=== PATIENT | female | born 1960 | race Caucasian/White ===

== ENCOUNTER → 2023-06-24 10:49 | Outpatient (CLI) | payer MEDICARE, OTHER, SELFPAY ==
[2023-06-24 12:09] LABS: Add Manual Diff / Slide Review NO; Basophils Absolute Auto 0 /uL (0-100); Eosinophils Absolute Auto 100 /uL (0-450); Eosinophils Percent Auto 2.3 % (2-4); Hematocrit 36.9 % (36-46); Hemoglobin 12.7 g/dL (12.0-16.0); Lymphocytes Absolute Auto 1300 /uL (1100-4500); Mean Corpuscular HGB Conc 34.4 % (30-36); Mean Corpuscular Hemoglobin 31.9 PG (26-34); Mean Corpuscular Volume 92.7 fL (80-100); Monocytes Absolute Auto 400 /uL (0-900); Monocytes Percent Auto 8.5 % (3-14); Neutrophils Absolute Auto 2900 /uL (1500-7000); Neutrophils Percent Auto 60.2 % (50-75); Platelet Count 270 X10^3/uL (150-400); Red Blood Cell Count 3.98 X10^6/uL (4.0-5.2); Red Cell Distribution Width 13.8 % (11.6-14.8); White Blood Cell Count 4.8 X10^3/uL (4.5-11.0)
[2023-06-24 12:19] LABS: Hemoglobin A1C% w Est Avg Glu 5.3 % (4.0-6.0)
[2023-06-24 12:34] LABS: Albumin 4.7 g/dL (3.5-5.0); BUN Creatinine Ratio 24.6 (6-22); Blood Urea Nitrogen 15 mg/dL (7-17); Calcium 9.9 mg/dL (8.4-10.2); Carbon Dioxide 28 mmol/L (22-32); Chloride 97 mmol/L (98-107); Estimated Glomerular Filt Rate > 60 mL/min (>60); Glucose 104 mg/dL (80-110); HEMOLYSIS < 15 (0-50); Potassium 4.3 mmol/L (3.4-5.1); Sodium 133 mmol/L (137-145)
[2023-06-24 12:43] LABS: Prealbumin 27.4 mg/dL (17.6-36.0)
== END ==
PROVIDERS: PCP Family Medicine; Referring Provider Orthopaedic Surgery Adult Reconstructive Orthopaedic Surgery; Visit Provider Orthopaedic Surgery Adult Reconstructive Orthopaedic Surgery
DX: Z01.818 Encounter for other preprocedural examination (principal); E55.9 Vitamin D deficiency, unspecified; R73.9 Hyperglycemia, unspecified; R77.0 Abnormality of albumin; Z01.812 Encounter for preprocedural laboratory examination
CPT/HCPCS: 36415; 80048; 82040; 82306; 83036; 84134; 85025; 93005

== ENCOUNTER 2023-08-06 06:11 | Day surgery (SDC) | payer MEDICARE, OTHER, SELFPAY ==
[2023-08-05 08:50] VITALS: BMI 20.5
[2023-08-06] VITALS (15 sets, daily range): BP systolic 87–131; BP diastolic 43–75; PULSE 70–105; RESP 12–18; TEMP 36.2–37.3; O2SAT 94–100; BMI 20.5
--- NOTE | 2023-08-06 | DI.RAD.S_ITS ---
PROCEDURE: XR HIP W PEL IF DONE RT 4V INDICATIONS: Intra OP right hip TECHNIQUE: 5 intraoperative images of the right hip. COMPARISON: [facility] [place], [place], XR PELVIS 1 OR 2 VIEWS, 06/24/2023, 10:33. FINDINGS: 5 intraoperative images of the right hip arthroplasty. The arthroplasty projects in the expected location. IMPRESSION: Intraoperative guidance provided. Dictated by: Oswaldo Toure M.D. on 08/06/2023 at 10:11 Approved by: Oswaldo Toure M.D. on 08/06/2023 at 10:12
--- NOTE | 2023-08-06 | DI.RAD.S_ITS ---
PROCEDURE: XR HIP W PEL IF DONE RT 2V INDICATIONS: Post OP total right hip TECHNIQUE: 2 view(s) of the hip acquired. COMPARISON: [facility], FIDELINA, XR HIP W PEL IF DONE RT 4V, 08/06/2023, 9:39. FINDINGS: Bones: Patient is status post right hip arthroplasty, with hardware components in expected positions. The hip joint appears congruent. The visualized bony structures appear intact. Soft tissues: Overlying postoperative changes are noted. No suspicious soft tissue densities. IMPRESSION: Expected post-operative appearance of a hip arthroplasty. Dictated by: Heidi North M.D. on 08/06/2023 at 11:29 Approved by: Heidi North M.D. on 08/06/2023 at 11:29
[2023-08-06 07:04] LABS: Add Manual Diff / Slide Review NO; Basophils Absolute Auto 0 /uL (0-100); Basophils Percent Auto 0.6 % (0-2); Eosinophils Absolute Auto 100 /uL (0-450); Eosinophils Percent Auto 2.5 % (2-4); Hematocrit 36.5 % (36-46); Hemoglobin 12.5 g/dL (12.0-16.0); Lymphocytes Absolute Auto 1700 /uL (1100-4500); Lymphocytes Percent Auto 34.6 % (25-40); Mean Corpuscular HGB Conc 34.4 % (30-36); Mean Corpuscular Hemoglobin 31.8 PG (26-34); Mean Corpuscular Volume 92.6 fL (80-100); Monocytes Absolute Auto 400 /uL (0-900); Monocytes Percent Auto 8.7 % (3-14); Neutrophils Absolute Auto 2600 /uL (1500-7000); Neutrophils Percent Auto 53.6 % (50-75); Platelet Count 256 X10^3/uL (150-400); Red Blood Cell Count 3.94 X10^6/uL (4.0-5.2); Red Cell Distribution Width 13.7 % (11.6-14.8); White Blood Cell Count 4.9 X10^3/uL (4.5-11.0)
[2023-08-06] MEDS: LACTATED RINGERS 1,000 ML 42 ML IV ×2 (07:07→12:30)
[2023-08-06 07:14] LABS: Blood Urea Nitrogen 17 mg/dL (7-17); Calcium 9.5 mg/dL (8.4-10.2); Carbon Dioxide 28 mmol/L (22-32); Chloride 104 mmol/L (98-107); Estimated Glomerular Filt Rate > 60 mL/min (>60); Glucose 109 mg/dL (80-110); HEMOLYSIS < 15 (0-50); Potassium 3.7 mmol/L (3.4-5.1); Sodium 137 mmol/L (137-145)
--- NOTE | 2023-08-06 07:47 | PM.PREOP ---
Pre-operative Note Interval Note History & Physical reviewed/Exam performed by Physician: Yes Changes to H&P: No
[2023-08-06] MEDS: CEFAZOLIN 2 GM/100 ML PREMIX 100 ML IV ×2 (08:20→16:52)
[2023-08-06] MEDS: TRANEXAMIC ACID 1,000 MG in SODIUM CHLORIDE 0.9% 100 ML 200 MG IV ×2 (08:34→10:15)
--- NOTE | 2023-08-06 08:43 | SUR.OPER ---
Supine on padded [place] table with bilateral legs secured in padded positioning boots and suspended in positioning spars, operative leg in traction per surgeon. Head on one pillow. Both Arms secured on padded armboards <90 degrees abduction. Padded perineal post in place per surgeon.
[2023-08-06] MEDS: ROPIVACAINE/EPI/CLONIDINE/KET 50 ML SYRINGE INJ (08:58)
[2023-08-06] MEDS: POVIDONE-IODINE 59 ML BOTTLE TOP (08:59)
[2023-08-06] MEDS: HYDROGEN PEROXIDE 473 ML SOLUTION 60 ML TOP (09:00)
--- NOTE | 2023-08-06 10:36 | P.OP_ITS ---
Operative Date/Time/Diagnoses Date of procedure: 08/06/23 Pre-op diagnosis: Right hip arthritis Post-op diagnosis: same Procedure & Clinicians Procedure: Right total hip arthroplasty (36691) Same procedure as scheduled: Yes Surgeon: Constantine Sinha Wellness Educator: Julianne Escalera Anesthesia Type: General and Local Operative Notes Estimated Blood Loss (mL): 750 Procedure in detail: Implants: Depuy Total Hip Arthroplasty: * Depuy [place] Gription size 56 cup?with 1 screw * Depuy Actis femoral stem size 6 standard offset? * 36 mm +1.5 ceramic femoral head? Procedure Summary: 63-year-old female who had significant synovitis around her pericapsular tissues which required additional time to resect prior to and during the reaming process. She had been templated for a 48 mm cup in a 3 standard offset head however the marker ball had indicated a 130% magnification ratio on her preoperative image and may have systematically under estimated the size of her bones. A 56 mm cup achieved an appropriate pinch fit and a 6 broach achieved good rotational stability. Initial trialing demonstrated good stability, appropriate offset, and a slight increase in leg length so the broach was sunk additionally down the femur to decrease leg length and a 2nd round of trialing with the real stem and a trial head was performed. Procedure in Detail: This patient was seen preoperatively and evaluated for hip pain which was refractory to numerous nonoperative treatment modalities. Their hip pain correlated with radiographic changes demonstrating significant degeneration in the hip joint. The risks and benefits of continued nonoperative management versus operative management were discussed at length and all of the patient?s questions were answered. Additional educational materials providing further details beyond our discussion in clinic were provided via a publicly available patient education video which included the incidence of medical complications associated with total hip arthroplasty, reasons for revision following total hip arthroplasty, and patient satisfaction rates following total hip arthroplasty. That video can be accessed at [email or web address] . With this understanding of the risks inherent to the procedure, the patient elected to move forward with operative management. Following preoperative optimization, the patient was scheduled for surgery. The patient was met in the preoperative holding area the day of the procedure and all questions were answered. The patient?s nares were swabbed with betadine in order to decolonize them from MRSA. Informed consent was signed and the operative limb was marked with indelible ink.? The patient was brought back to the operating room where anesthesia was induced. The patient was transferred to the [place] table and all bony prominences were padded. The operative site was prepped and draped in the usual sterile fashion. Prior to incision, tranexamic acid and cefazolin were administered. Operative templating images were displayed demonstrating the anticipated implant sizes and correct operative extremity. A timeout procedure was performed verifying the patient?s identity, medical comorbidities, allergies, relevant medications, anesthesia type and the surgical plan. All present were in agreement. The assistance of a physician grants and contracts assistant was required for positioning, room setup, soft tissue retraction and wound closure. Without this assistance, the procedure would have been significantly more challenging and time consuming.?? A direct anterior approach to the hip was utilized. This was performed with a longitudinal incision through a Heuter interval. The incision was planned 2 cm distal and 2 cm lateral to the ASIS extending towards the lateral patella, in line with the muscle body of the TFL. Following incision, the subcutaneous tissue was dissected while taking care to avoid injury to the lateral femoral cutaneous nerve. The fascia overlying the TFL was identified by dissecting off the overlying fat and identifying perforating vessels to the TFL. The TFL fascia was incised and dissected away from the medial border of the TFL. A cobra retractor was placed over the superior femoral neck between the abductors and the hip capsule and used to reflect the TFL laterally. A [place] self-retainer was then placed in the distal aspect of the wound between the TFL and the rectus femoris. This was tensioned to open up the direct anterior interval and the lateral circumflex vessels were identified and coagulated using electrocautery. The floor of the TFL fascia was incised, exposing the pericapsular fat overlying the hip capsule. A second cobra retractor was placed on the inferior femoral neck. A double-bent soft tissue retractor was placed on the anterior wall of the acetabulum and used to tension the reflected head of rectus femoris, which was then released in order to limit soft tissue tension. A capsulotomy was made in the midline of the anterior hip capsule in line with the femoral neck ending at the vastus tubercle. The double-bent retractor was removed in order to limit the amount of time that a soft tissue retractor remained on the anterior wall and protect the femoral nerve. Tag stitches were placed in the superior and inferior leaflets of the hip capsule. An [place] soft tissue retractor was introduced over the tag stitches and tensioned in the interval between the rectus femoris and the TFL in order to retract and protect those muscles. The cobra retractors were replaced intracapsularly, with one over the superior neck in the pocket created by the base of the greater trochanter and the other on the femoral head. The capsulotomy was extended laterally to the base of the greater trochanter and medially to the lesser trochanter. This required externally rotating the hip. Once the lesser trochanter had been identified, a neck cut was planned according to measurements from preoperative templating. A ruler was cut at the length measured between the superior aspect of the lesser trochanter and the collar of the prosthesis. This line was extended towards the inferior aspect of the lateral cobra retractor to plan a cut which would leave minimal residual femoral neck laterally. The neck was cut at 60 degrees of external rotation along that line. A second cut was performed to remove a large napkin ring and facilitate head extraction. The napkin ring cut and femoral head were removed.?? A broad anterior wall retractor was placed between the labrum and the anterior capsule so that the anterior capsule would prevent capturing and pinching the femoral nerve anteriorly. An additional retractor was placed on the posterior wall. External rotation and traction were applied through the [place] table so that the cut surface of the femoral neck would not restrict access to the acetabulum. The labrum was excised sharply and the pulvinar was excised with electrocautery to limit bleeding from branches of the obturator artery. Acetabular reamers were selected based on preoperative templating and measurements of the excised femoral head. These were introduced into the acetabulum. Fluoroscopy was utilized to replicate a standing AP pelvis radiograph by centering over the pelvis, rotating until there was appropriate symmetry between the obturator foramen, and introducing caudal tilt to match the position of the pubic symphysis relative to the sacrococcygeal junction according to the patient?s anatomy. Fluoroscopy was utilized to ensure appropriate reaming depth. Once sati sfied with the reaming depth corresponding to the preoperative template and the pinch fit between the columns, an appropriate sized acetabular cup was selected which would provide 1 mm of press-fit. This cup was introduced and manipulated until appropriate abduction and anteversion angles were obtained with careful attention to appropriate abduction and anteversion angles as evaluated by the position of the cup relative to the anterior and posterior weir of the acetabulum and the AP fluoroscopy which recreated the patient?s standing radiograph. The cup was impacted into place. One screw was placed to provide additional fixation. Peripheral osteophytes were removed. The acetabular liner was then placed with care to ensure locking of the locking mechanism.? Attention was then turned to the femur. All retractors were removed, traction was released, a retractor was placed in the interval between the hip capsule and the gluteus minimus, and the hip was externally rotated to 90 degrees. Traction was applied through the [place] table to tension the lateral capsule and this was released using electrocautery. Traction was released and a [place] hook was placed posteriorly around the proximal femur at the level of the vastus ridge. The table height was lowered in order to restrict the tension on the anterior structures during hip hyperextension to limit the risk of femoral nerve palsy. With traction off and the hip at 90 degrees of external rotation, the hip was hyperextended and adducted while manually elevating the femur away from the acetabulum with the [place] hook to ensure it would not be caught behind the greater trochanter. An asymmetric retractor was placed over the calcar and a broad double-pronged retractor was placed over the greater trochanter. The tag stitch capturing the lateral leaflet of the capsule was moved to the medial side, leaving the conjoined and piriformis tendons isolated in the face of the greater trochanter. The hip was externally rotated and elevated. A release of the conjoined tendon was not necessary in order to obtain adequate exposure for broaching. The canal was opened with an opening broach and a rasp was used to remove cancellous bone. A rongeur was used to remove the residual lateral bone at the base of the greater trochanter to avoid placing the stem in varus. The femur was then broached to the appropriate sized stem yielding good rotational fit and fill of the canal as well as appropriate version of the stem trial. Neck and head trials were placed, all retractors were removed and the hip was returned to neutral abduction and extension. I then reduced the hip. An AP pelvis fluoroscopic image matching the preoperative standing radiograph was obtained with both lesser trochanters visible and both hips in 40 degrees of external rotation. This demonstrated that the leg was slightly long relative to the contralateral side. She would started with equal leg lengths.. An AP hip fluoroscopic image was obtained with the hip in neutral rotation which demonstrated appropriate canal fill and good sikhism of [place]'s line. Hip stability was evaluated with 125 degrees of external rotation and a 45 degree drop test which demonstrated appropriate stability. The hip was dislocated and I returned to the broaching position. I sank the size 6 broach approximately 3 mm further down the canal and repeated the calcar reaming. The definitive stem was placed. I placed a trial head and repeated the trialing process, finding maintenance of stability, good canal fill of the stem, and more equal leg lengths than my initial trialing. I returned to the broaching position, the trunnion was cleaned and dried. I placed a ceramic head onto the trunnion and impacted it into place on the [place] taper.?? All retractors were removed and the hip was reduced. A dilute mixture of betadine and peroxide was used to bathe the soft tissues during final fluoroscopic assessment. Appropriate component positioning was confirmed on an AP pelvis radiograph with the operative and nonoperative legs in 40 degrees of external rotation, evaluating leg length and offset. Appropriate stem fill was evaluated on an AP hip radiograph with the operative leg in neutral rotation. No fractures were identified on these radiographs. Stability was satisfactory with a 90 degree external rotation test as well as a 45 degree drop test. The hip was copiously irrigated with pulse lavage. The capsule was closed with absorbable interrupted suture. The TFL fascia was closed with barbed suture while carefully protecting the lateral femoral cutaneous nerve from entrapment. A mixture of Ropivacaine, Epinephrine, Clonidine and Toradol was infiltrated throughout the soft tissues. The skin was closed with 2-0 and 3-0 sutures. Surgical glue was applied and a soft dressing was placed.??The sponge, instrument and needle counts were reported as being correct at the end of the case.??No obvious complications occurred. The patient was transferred from the [facility] table back to a stretcher. The patient emerged from anesthesia without difficulty and was taken to the PACU in a stable condition.? Plan for aftercare: * Patient lives on [facility]. She hopes to discharge today back to the hotel that she and her state in last night, and then return to the [place] tomorrow morning * IV fluids should run continuously at 150 mL/hr until the patient has concluded her initial physical therapy session * Antihypertensive medications will be held * Anterior hip precautions * Weightbearing as tolerated * Mobilization as soon as the patient has recovered from anesthesia. If physical therapists are unavailable at the time the patient is ready to ambulate, then nursing staff should help patient ambulate * Aspirin 81 twice per day for DVT prophylaxis * Multimodal pain regimen with no IV opioids ordered * Follow up at [facility] in 2 weeks * Detailed postoperative instructions available at [email or web address]
[2023-08-06] MEDS: OXYCODONE IR 5 MG TABLET PO ×2 (11:00→12:07)
[2023-08-06] MEDS: LACTATED RINGERS 1,000 ML 1000 ML IV (11:11)
[2023-08-06] MEDS: ONDANSETRON 4 MG/2 ML INJ IV (11:31)
--- NOTE | 2023-08-06 13:20 | P.PN_ITS ---
Subjective Subjective Interval history: Patient seen postoperatively. Recovering appropriately. Pain well controlled. Has ice in place. Flexing extending hallux ankle and knee. Foot well perfused. Dressing clean dry and intact. Have attempted mobilization however this was limited by orthostatic hypotension. This has improved with IV fluid resuscitation. We are going to attempt another round of mobilization. Patient very hopeful to [place] tonight[place] a hotel this evening. We will have her mobilize in the postoperative recovery area with our postoperative recovery nurse who has a appropriate training in mobilization assistance following total joint replacement. Presuming the patient is able to maintain stable blood pressures and is able to safely mobilize with our postoperative nurse, we will plan for discharge today. She will not receive a formal physical therapy assessment however we will ensure that she is mobilizing safely prior to her discharge and she has had preoperative physical therapy training to ensure that she is able to maintain appropriate safety with a walker. Exam Vital Signs (past 8 hours): - 08/06/23 06:56 08/06/23 10:24 08/06/23 10:34 Temperature 99 F 98 F Pulse Rate 85 70 70 Respiratory Rate 17 12 14 Blood Pressure 131/75 88/61 L 96/61 Pulse Oximetry 97 100 100 Oxygen Delivery Method Room Air Room Air Room Air 08/06/23 10:49 08/06/23 11:04 08/06/23 11:14 Temperature Pulse Rate 73 71 77 Respiratory Rate 14 14 18 Blood Pressure 113/51 L 110/51 L 117/63 Pulse Oximetry 100 100 99 Oxygen Delivery Method Room Air Room Air Room Air 08/06/23 13:16 Temperature Pulse Rate 80 Respiratory Rate 16 Blood Pressure 123/68 Pulse Oximetry 99 Oxygen Delivery Method Room Air Oxygen Delivery Method Room Air Objective Labs 08/06/23 06:30 08/06/23 06:30 Labs: Laboratory Results - last 24 hr 08/06/23 06:30 WBC 4.9 RBC 3.94 L Hgb 12.5 Hct 36.5 MCV 92.6 MCH 31.8 MCHC 34.4 RDW 13.7 Plt Count 256 Neut % (Auto) 53.6 Lymph % (Auto) 34.6 [place] % (Auto) 8.7 Eos % (Auto) 2.5 Baso % (Auto) 0.6 Neut # (Auto) 2600 Lymph # (Auto) 1700 [place] # (Auto) 400 Eos # (Auto) 100 Baso # (Auto) 0 PT 11.0 INR 1.0 Sodium 137 Potassium 3.7 Chloride 104 Carbon Dioxide 28 BUN 17 Creatinine 0.68 Estimated GFR > 60 BUN/Creatinine Ratio 25.0 H Glucose 109 Calcium 9.5 Blood Type O Positive Antibody Screen Negative Crossmatch See Detail [facility] Medical History (Updated 08/05/23 @ 09:10 by Toshia Burns RN) Easy bruisability Melanoma (12/2021) Hearing impaired HTN (hypertension) Osteopenia Surgical History (Updated 08/05/23 @ 09:12 by Toshia Burns RN) History of surgery (12/2021) Social History household members: spouse Smoking Status: Never smoker alcohol intake: current
[2023-08-06] MEDS: ALBUMIN HUMAN 25 GM/100 ML VIAL IV (14:20)
[2023-08-06 14:46] LABS: Hematocrit 25.1 % (36-46); Hemoglobin 8.5 g/dL (12.0-16.0)
--- NOTE | 2023-08-06 14:56 | SUR.PHASEII ---
@ 1400 pt. had b/p lying sitting standing stable . no drop noted in vital signs . pt stable . steady on feet ambulated to the bathroom and got dressed and felt faint. pt eased to wheel chair and placed back in bed and stated she fainted. b/p 84/[address] Molina notified and pt. given , leter lr, albumen , labs drawn and b/p re checked 110/60 hr 66 . report called to Sariah DELATORRE and pt. transfered with belongings to room 204. Chip at bedside.
[2023-08-06] MEDS: LACTATED RINGERS 1,000 ML 100 ML IV (15:16)
[2023-08-06] MEDS: IBUPROFEN 600 MG TABLET PO ×2 (15:18→20:27)
[2023-08-06] MEDS: ACETAMINOPHEN 325 MG TABLET 650 MG PO ×2 (15:18→20:28)
--- NOTE | 2023-08-06 16:35 | PT.IIE ---
Current Diagnoses Unilateral primary osteoarthritis, right hip (08/06/23) Surgery Performed Operation Date: 08/06/23 07:45 Actual Procedures p Total Hip Arthroplasty/Anterior Approach(Right) - Constantine Sinha MD Surgical History (Last Updated 08/05/23 @ 09:12 by Toshia Burns, RN) History of surgery (12/2021) Medical History (Last Updated 08/05/23 @ 09:10 by Toshia Burns RN) Easy bruisability Hearing impaired HTN (hypertension) Melanoma (12/2021) Osteopenia Physical Therapy Inpatient Evaluation/Re-Eval M1 PT/OT-IP Prior Functional Status Start: 08/06/23 17:51 Freq: NEEDED Status: Active Protocol: Document 08/06/23 16:35 AB (Rec: 08/06/23 18:03 AB [id number]) Medical Review Prior Functional Status Medical History Reviewed Yes Communication able to make needs known Mobility and Gait pt stated that she was modified independent with all mobilities and ambulation without AD but has been using her hurrycane for the passed few weeks Social History Household Members spouse Living Arrangements House Number of Floors (Floors) One Floor Number of Stairs To Enter/Railing? 13 steps R rail ascending to enter the house Home Environment High Toilet,Walk in Shower Home Equipment Front Wheel Walker,Hand Held Shower Additional Social History Comment pt has a hurrycane M2 PT-IP Current Condition Start: 08/06/23 17:51 Freq: NEEDED Status: Active Protocol: Document 08/06/23 16:35 AB (Rec: 08/06/23 18:03 AB [id number]) Physical Therapy Current Condition Current Condition Evaluation Date 08/06/23 Treatment Diagnosis s/p R JAYMIE anterior; difficulty in walking Onset Date 08/06/23 M3 PT-IP Subjective Start: 08/06/23 17:51 Freq: NEEDED Status: Active Protocol: Document 08/06/23 16:35 AB (Rec: 08/06/23 18:03 AB [id number]) Subjective Physical Therapy Visit Type Type Initial Evaluation Visit Start Time 16:35 Visit Stop Time 17:50 Number of POWER PLANT OPERATOR Visits 0 Physical Therapy Visit Comments Patient Comments agreeable to do PT Therapy Pain Assessment Pain When Pain Assessed At Rest Pain Present Pain Present Pain Reported Location right hip Intensity 4 Scale Used Numeric (0 - 10) Pain Management Techniques Apply Cold,Distraction, Modification of Treatment,Re- positioning,Timing of Activity with Medications M4 PT-IP Mobility and Gait Start: 08/06/23 17:51 Freq: NEEDED Status: Active Protocol: Document 08/06/23 16:35 AB (Rec: 08/06/23 18:03 AB [id number]) PT-Bed Mobility Assessment Supine to Sit Supine to Sit Standby Assistance Sit to Supine Sit to Supine Standby Assistance PT-Transfer Assessment Sit to and From Stand Sit to and from Stand Contact Guard Assistance,1 Person Assistance,Use of Upper Extremities Equipment Transfer Assistive Device Gait Belt,Front Wheeled Walker Orthotic/Prosthetic Devices or Brace: No Comments Mobility Comments pt supine in bed and spouse in room. obtained PLOF and home set up. post-op folder provided and reviewed contents . educated pt and spouse regarding R hip anterior precautions. pt requires cues to recall but able to recall after repetitions. BP monitored. BP in supine: 129/71. completed supine to sit SBA. able to sit on EOB SBA. BP in sittin/55. no c/o dizziness. completed sit to stand CGA. BP in standing 134/55. pt ambulated in room using FWW ~ 20 ft CGA . pt sat on EOB. BP checked: 117/55. pt rested in sitting and rechecked BP after ~ 2 min : 112/59. c/o slight dizziness. pt stated that they need to leave by 9 am tomorrow to [place] able [place] ferry. educated pt regarding car transfers and stair climbing. initiated caregiver training. educated spouse on how to use safety belt and how to assist pt. spouse was able to put safety belt on pt. BP checked: 129/42. spouse assisted pt with sit to stand and pt completed up/down step stool holding on to side of FWW to simulate R rail. pt completed up/down step using rail with min A with spouse assisting. pt sat back on the EOB. completed sit to supine x 2 repetitions with cues on techniques. positioned pt in bed. call light and table placed within reach. pt and spouse without further concerns. BP at end of PT session: 112/59 Gait Assessment Gait Gait Assistance Required: Contact Guard Assist Distance (Feet) 20 Able to Maintain Weight Bearing Status Yes During Gait Assistive Devices Assistive Device Gait Belt,Front Wheeled Walker Orthotic/Prosthetic Devices or Brace: No Gait Deviations General Gait Pattern Antalgic Factors Limiting Gait Function Factors Limiting Gait Function Decreased Activity Tolerance, Decreased Strength,Difficulty Following Directions,Limited Range of Motion,Pain,Poor Balance,Poor Safety Awareness Stair Climbing Assessment Evaluation Level of Assist On Stairs Minimal Assistance Devices Stair Climbing Assistive Devices Right Railing Technique/Endurance Stair Climbing Technique Step to Step Number of Steps Climbed 1 Query Text: Stair Climbing Set # Repetitions (reps) 2 PT-Balance Assessment Sitting Balance and Reactions Static Sitting Balance Ability Normal Dynamic Sitting Balance Ability Good Standing Balance and Reactions Static Standing Balance Ability Fair Dynamic Standing Balance Ability Fair Device Used FWW M5 PT-IP Objective Assessments Start: 08/06/23 17:51 Freq: NEEDED Status: Active Protocol: Document 08/06/23 16:35 AB (Rec: 08/06/23 18:03 AB [id number]) Orientation Orientation/Cognition Level of Alertness Alert Orientation Name,Situation Language Function Ability No Deficits Noted Safety Awareness Decreased Safety Awareness Memory Description Short Term Impaired Gross Range of Motion Lower Extremity ROM Assessment Within Functional Limits Strength Lower Extremity Strength Assessment Right Impaired Hip 3-/5 Knee 4-/5 Coordination Assessment Gross Coordination Gross Coordination WNL Sensation Assessment Sensation Gross Sensation WNL Muscle Tone Muscle Tone WNL Yes M6 PT-IP Treatment Start: 08/06/23 17:51 Freq: NEEDED Status: Active Protocol: Document 08/06/23 16:35 AB (Rec: 08/06/23 18:03 AB [id number]) Physical Therapy Treatment Exercises Exercises Heel Slides Education Education Provided Precautions,Weight Bearing Status,Post-Op Packet,Safety M7 PT-IP Assessment and Plan Start: 08/06/23 17:51 Freq: NEEDED Status: Active Protocol: Document 08/06/23 16:35 AB (Rec: 08/06/23 18:03 AB [id number]) PT Summary Assessment and Plan Potential Rehabilitation Potential Fair Status of Condition at Evaluation Evolving Summary Impairments Pain,ROM,Strength,Balance, Coordination,Sensation,Tone, Cognition,Bed Mobility, Transfers,Gait,Activity Tolerance Assessment Summary pt is a 63 y/o F s/p R JAYMIE anterior approach POD 0. pt has R hip anterior precautions and is WBAT. pt able to ambulate using FWW CGA 20 ft but with orthostatic hypotension. Caregiver training conducted and spouse was able to westley pt with mobility. pt may go home when medically stable Goals Bed Mobility Goal Independent Transfer Goal Independent,Front Wheeled Walker Gait Goal Independent,Front Wheel Walker Gait Distance 200 Other Goals up/down 13 steps R rail mod I Days to Meet Goals 5 Frequency of Treatment Frequency Of Treatment Twice a Day Treatment Plan Physical Therapy Treatment Plan Bed Mobility Training,Transfer Training,Gait Training, Therapeutic Exercise,Balance Retraining,Post Op Education, Discharge Planning,Hot or Cold Pack,Neuromuscular Re-ed, Coordination Retraining,Manual Therapy Precautions Anterior Hip Precautions No Hip Extension,No Hip External Rotation Weight Bearing Status Weight Bearing Status Weight Bear as Tolerated Allowed Weight Bearing Amount (enter % RLE WBAT or #) (%) Recommendations To Nursing Amount of Assist Needed 1 Person Assist Discharge Recommendations PT Discharge Recommendations Home with Assistance, Outpatient PT Transportation Needs at Discharge Private Vehicle
--- NOTE | 2023-08-06 16:46 | PM.PN.1 ---
Subjective Subjective Interval history: Patient is seen postoperatively. Resting comfortably. No acute distress. Ice machine in place. Pain well controlled. She ambulated with the assistance of nursing staff successfully and was able to safely navigate on a flat surface with a walker. She did have an episode of syncope while sitting on the toilet however. We have therefore elected to have her remain inpatient overnight for monitoring to ensure she does not have additional syncopal events. Her hemoglobin is 8.5. We will not transfuse. We will continue with IV fluids until 8:00 p.m. tonight. She should get out of bed slowly before assuming an upright position. She should ambulate to and from the bathroom so that we can monitor her ability to walk around without having additional episodes. We will continue with plans for her to discharge home. She has a 10:15 ferry reservation tomorrow morning and we will plan to have her discharge in time to make that ferry. Exam Vital Signs (past 8 hours): - 08/06/23 10:24 08/06/23 10:34 08/06/23 10:49 Temperature 98 F Pulse Rate 70 70 73 Respiratory Rate 12 14 14 Blood Pressure 88/61 L 96/61 113/51 L Pulse Oximetry 100 100 100 Oxygen Delivery Method Room Air Room Air Room Air 08/06/23 11:04 08/06/23 11:14 08/06/23 13:16 Temperature Pulse Rate 71 77 80 Respiratory Rate 14 18 16 Blood Pressure 110/51 L 117/63 123/68 Pulse Oximetry 100 99 99 Oxygen Delivery Method Room Air Room Air Room Air 08/06/23 13:45 08/06/23 14:10 08/06/23 14:25 Temperature 99.2 F Pulse Rate 71 76 73 Respiratory Rate 12 16 13 Blood Pressure 87/49 L 99/62 102/66 Pulse Oximetry 98 99 99 Oxygen Delivery Method Room Air Room Air Room Air 08/06/23 15:00 Temperature 97.2 F L Pulse Rate 92 H Respiratory Rate 16 Blood Pressure 119/43 L Pulse Oximetry 96 Oxygen Delivery Method Oxygen Delivery Method Room Air Objective Labs 08/06/23 13:50 08/06/23 06:30 Labs: Laboratory Results - last 24 hr 08/06/23 08/06/23 06:30 13:50 WBC 4.9 RBC 3.94 L Hgb 12.5 8.5 L Hct 36.5 25.1 L MCV 92.6 MCH 31.8 MCHC 34.4 RDW 13.7 Plt Count 256 Neut % (Auto) 53.6 Lymph % (Auto) 34.6 [place] % (Auto) 8.7 Eos % (Auto) 2.5 Baso % (Auto) 0.6 Neut # (Auto) 2600 Lymph # (Auto) 1700 [place] # (Auto) 400 Eos # (Auto) 100 Baso # (Auto) 0 PT 11.0 INR 1.0 Sodium 137 Potassium 3.7 Chloride 104 Carbon Dioxide 28 BUN 17 Creatinine 0.68 Estimated GFR > 60 BUN/Creatinine Ratio 25.0 H Glucose 109 Calcium 9.5 Blood Type O Positive Antibody Screen Negative Crossmatch See Detail [facility] Medical History (Updated 08/05/23 @ 09:10 by Toshia Burns RN) Easy bruisability Melanoma (12/2021) Hearing impaired HTN (hypertension) Osteopenia Surgical History (Updated 08/05/23 @ 09:12 by Toshia Burns RN) History of surgery (12/2021) Social History household members: spouse Smoking Status: Never smoker alcohol intake: current Quality VTE Deep Vein Thrombosis/Pulmonary Embolism Present on Admission: No
[2023-08-06] MEDS: TRAMADOL 50 MG TABLET PO ×2 (16:57→21:20)
--- NOTE | 2023-08-06 17:41 | PC.NURSE ---
Day shift: Pt OOB with 1PA + FWW with PT. BP dropped again while working with PT and patient got minimally dizzy. Minimal pain adequately controlled with PO medications. Notified JUNE Escalera regarding patient's drop in H&H after surgery. Will continue to monitor.
[2023-08-06] MEDS: ASPIRIN EC 81 MG TABLET PO (21:20)
[2023-08-07] MEDS: CEFAZOLIN 2 GM/100 ML PREMIX 100 ML IV (00:30)
[2023-08-07 01:29] VITALS: BP 138/60; PULSE 85; RESP 18; TEMP 36.2; O2SAT 94
[2023-08-07] MEDS: IBUPROFEN 600 MG TABLET PO ×2 (03:06→08:53)
[2023-08-07] MEDS: ACETAMINOPHEN 325 MG TABLET 650 MG PO ×2 (03:06→08:53)
[2023-08-07] MEDS: TRAMADOL 50 MG TABLET PO (03:41)
[2023-08-07 04:00] VITALS: BP 121/45; PULSE 79; RESP 18; TEMP 36.2; O2SAT 99
[2023-08-07 06:01] LABS: Hemoglobin 7.1 g/dL (12.0-16.0)
[2023-08-07 06:12] LABS: Hematocrit 20.3 % (36-46)
[2023-08-07 08:00] VITALS: BP 119/44; PULSE 75; RESP 16; TEMP 36.1; O2SAT 98
--- NOTE | 2023-08-07 08:38 | PT.IPTN ---
Current Diagnoses Unilateral primary osteoarthritis, right hip (08/06/23) Surgery Performed Operation Date: 08/06/23 07:45 Actual Procedures p Total Hip Arthroplasty/Anterior Approach(Right) - Constantine Sinha MD Physical Therapy Treatment Note M2 PT-IP Current Condition Start: 08/06/23 17:51 Freq: NEEDED Status: Active Protocol: Document 08/06/23 16:35 AB (Rec: 08/06/23 18:03 AB [id number]) Physical Therapy Current Condition Current Condition Evaluation Date 08/06/23 Treatment Diagnosis s/p R JAYMIE anterior; difficulty in walking Onset Date 08/06/23 M3 PT-IP Subjective Start: 08/06/23 17:51 Freq: NEEDED Status: Active Protocol: Document 08/07/23 08:51 TS (Rec: 08/07/23 08:59 TS [id number]) Subjective Physical Therapy Visit Type Type Treatment Note Visit Start Time 08:38 Visit Stop Time 08:51 Notes per nursing pt cleared for PT. Number of SCRAP DEALER Visits 1 Physical Therapy Visit Comments Patient Comments Pt found resting in bed, spouse in room, pt agreeable to PT. Therapy Pain Assessment Pain When Pain Assessed At Rest Pain Present Pain Present Pain Reported Location right hip Intensity 5 Scale Used Numeric (0 - 10) Pain Management Techniques Apply Cold,Distraction, Modification of Treatment,Re- positioning,Timing of Activity with Medications M4 PT-IP Mobility and Gait Start: 08/06/23 17:51 Freq: NEEDED Status: Active Protocol: Document 08/07/23 08:51 TS (Rec: 08/07/23 08:59 TS [id number]) PT-Bed Mobility Assessment Supine to Sit Supine to Sit Standby Assistance Scooting Scooting to Edge of Bed Standby Assistance PT-Transfer Assessment Sit to and From Stand Sit to and from Stand Standby Assistance Equipment Transfer Assistive Device Gait Belt,Front Wheeled Walker Orthotic/Prosthetic Devices or Brace: No Comments Mobility Comments BP in supine 125/54 prior to mobility. Supine to sit SBA with BUE support. STS from bed SBA with FWW< spouse donned gait belt prior to standing. She ambulated ~200' SBA with FWW, denied any dizziness or lightheadedness. She performed steps x3 with single rail sidestepping SBA, had no buckling or LOB. Pt ambulated back to room, was left in bed with all needs met. Gait Assessment Gait Gait Assistance Required: Standby Assistance Distance (Feet) 200 Able to Maintain Weight Bearing Status Yes During Gait Assistive Devices Assistive Device Gait Belt,Front Wheeled Walker Orthotic/Prosthetic Devices or Brace: No Gait Deviations General Gait Pattern Antalgic Factors Limiting Gait Function Factors Limiting Gait Function Decreased Activity Tolerance, Decreased Strength,Difficulty Following Directions,Limited Range of Motion,Pain,Poor Balance,Poor Safety Awareness Stair Climbing Assessment Evaluation Level of Assist On Stairs Standby Assistance Devices Stair Climbing Assistive Devices Right Railing Technique/Endurance Stair Climbing Technique Step to Step Number of Steps Climbed 3 PT-Balance Assessment Sitting Balance and Reactions Static Sitting Balance Ability Normal Dynamic Sitting Balance Ability Good Standing Balance and Reactions Static Standing Balance Ability Good Dynamic Standing Balance Ability Good Device Used FWW M5 PT-IP Objective Assessments Start: 08/06/23 17:51 Freq: NEEDED Status: Active Protocol: Document 08/06/23 16:35 AB (Rec: 08/06/23 18:03 AB [id number]) Orientation Orientation/Cognition Level of Alertness Alert Orientation Name,Situation Language Function Ability No Deficits Noted Safety Awareness Decreased Safety Awareness Memory Description Short Term Impaired Gross Range of Motion Lower Extremity ROM Assessment Within Functional Limits Strength Lower Extremity Strength Assessment Right Impaired Hip 3-/5 Knee 4-/5 Coordination Assessment Gross Coordination Gross Coordination WNL Sensation Assessment Sensation Gross Sensation WNL Muscle Tone Muscle Tone WNL Yes M6 PT-IP Treatment Start: 08/06/23 17:51 Freq: NEEDED Status: Active Protocol: Document 08/07/23 08:51 TS (Rec: 08/07/23 08:59 TS [id number]) Physical Therapy Treatment Education Education Provided Precautions,Weight Bearing Status,Post-Op Packet,Safety M7 PT-IP Assessment and Plan Start: 08/06/23 17:51 Freq: NEEDED Status: Active Protocol: Document 08/07/23 08:51 TS (Rec: 08/07/23 08:59 TS [id number]) PT Summary Assessment and Plan Potential Rehabilitation Potential Fair Summary Impairments Pain,ROM,Strength,Balance, Coordination,Sensation,Tone, Cognition,Bed Mobility, Transfers,Gait,Activity Tolerance Progress Towards Goals Progressing Toward Goals Assessment Summary Amanda is making good progress with her mobility. She is SBA for all bed mobility and STS with FWW. She progressed her gait to ~200' SBA with FWW and demonstrates good balance. She performed stairs x3 with single rail and demonstrates good carryover of step sequencing. PT is recommending pt return home with assist and oupatient PT. Goals Bed Mobility Goal Independent Transfer Goal Independent,Front Wheeled Walker Gait Goal Independent,Front Wheel Walker Gait Distance 200 Other Goals up/down 13 steps R rail mod I Days to Meet Goals 5 Frequency of Treatment Frequency Of Treatment Twice a Day Treatment Plan Physical Therapy Treatment Plan Bed Mobility Training,Transfer Training,Gait Training, Therapeutic Exercise,Balance Retraining,Post Op Education, Discharge Planning,Hot or Cold Pack,Neuromuscular Re-ed, Coordination Retraining,Manual Therapy Precautions Anterior Hip Precautions No Hip Extension,No Hip External Rotation Weight Bearing Status Weight Bearing Status Weight Bear as Tolerated Allowed Weight Bearing Amount (enter % RLE WBAT or #) (%) Recommendations To Nursing Amount of Assist Needed Standby Assistance Discharge Recommendations PT Discharge Recommendations Home with Assistance, Outpatient PT Transportation Needs at Discharge Private Vehicle
--- NOTE | 2023-08-07 08:44 | CM.DANOTE ---
Initial DCP Assessment Visit Note Reviewed EMR and team rounds for pt's medical status and anticipated d/c needs. Met with pt/spouse at bedside to introduce self and role, pt found to be dressed, ready for d/c following working with PT. They have a 10:15am ferry reservation, her spouse will transport. Pt and spouse live independently in their own home on [address]. Payor: Medicare Attending: Dr. Sinha Pt lane 63 year-old F [place] [facility] [place] following her total R-hip arthroplasty surgery yesterday. She has a PMH of worsening hip pain since September, which limits her mobility and ability to participate in meaningful exercise activities. Conservative attempts at pain management have had no lasting benefit. She does not typically need an AD for ambulation, however has needed to use a cane over the last few weeks due to balance and pain issues. Plan is for her to f/u with Ortho in 2-weeks for post-op wound check, OP PT. No further DCP needs identified at this time. Discharge Planning/Care Management CM Discharge Assessment Start: 08/07/23 08:42 Freq: Status: Active Protocol: Document 08/07/23 08:43 DPL (Rec: 08/07/23 08:44 DPL [id number]) Discharge Planning Assessment Assigned Equipment Washer LISY Sood Advance Directives? Yes Advance Directives on File No History Provided By Patient,Family Member,Medical Record Has Patient been admitted in last 30 No days? Prior Living Arrangements House Household Members spouse Type of transporation used prior to Drives own vehicle admit Independent with ADL's Yes: Modified independent Is patient alert and oriented? Yes Caregiver for Another No DME Already Rented / Owned Elevated Toilet Seat,FWW / Walker Patient/Family Preference OP PT Therapy Barriers to Discharge No Discharge Plan Home Community Services Physical Therapy Transportation Arrangement Spouse Referrals Initiated None needed Whiteboard Updated in Patient Room with Yes name and ext. # of Equipment Washer Review Status In Process Please Provide Date Initial DC 08/07/23 Assessment Was Performed Pre-Anesthesia Assessment Start: 08/05/23 08:50 Freq: Status: Active Protocol: Document 08/05/23 08:50 CAB (Rec: 08/05/23 09:19 CAB [id number]) Pre-Anesthesia Assessment Patient Information Reviewed Via Phone Assessment Assessment Completed With Patient Diagnostic Results BMP/CMP,CBC,EKG Comment Labs/EKG @ [facility] 06/24/23 Primary Care Provider Melida Bose Seen Specialist in Last 12 Months Yes Specialist Seen Butter Production Supervisor,Orthopedist Primary Language [place] Outreach Professional Required No Height 172.72 cm Weight 61.235 kg Body Mass Index (BMI) 20.5 Hearing Ability Hearing Impaired,Use of Hearing Aid Visual Assist Glasses Dentition Type Teeth, Natural Present Barriers to Learning None,Visual Hx Anesthesia Reactions No Hx Family Anesthesia Reaction No Hx Malignant Hyperthermia No Hx Blood Transfusions No Anesthesia Review Requested No Hvac Manager No alcohol intake current alcohol intake frequency 0-2 drinks per day Smoking Status Never smoker Substance Use Type does not use Pain Present Pain Reported Musculoskeletal Symptoms Abnormal Gait,Back Pain, Difficulty Walking,Joint Pain History of Falling (Recent or History of No ) Patient is completely paralyzed or No completely immobile Prosthesis or Orthotic Device Cane Mental Status Oriented to own ability Is patient on oxygen? No Does patient have WHALEY/SOB No Hx Sleep Apnea No Currently Taking a Beta Deanna No Can You Climb a Flight of Stairs Without Yes SOB Hx Chest Pain No Hx SOB No Hx Syncope or Dizziness No Anti-Coagulant Therapy No Has a Home Appliance Washing Machine Mechanic No Cardiac Testing No Hx Pacemaker/ICD No Pacemaker Rep Required? No Cardiac Clearance Received Not Applicable Diet Type At Home Regular Dysphagia No Gastrointestinal Symptoms Diarrhea Comment Currently, pt feels related to mupirocin use Chronic UTI No Urinary Catheter Present No Hx Urinary Self Catheterization No Diabetes No HgbA1C 5.3 Date 06/24/23 Patient No Lactating No Hx Drug Resistant Organism No Presence of External or Internal Medical No Devices Received a COVID vaccine? Yes Received all doses? Yes Marital Status Lives With spouse Current Living Arrangements House Number of Floors (Floors) One Floor Number of Stairs To Enter/Railing? 13 Support System Spouse Does the Patient Have Assistance After Yes Surgery Patient Discharge Plan Description Return Home Comment Pt advised same day surgery per surgeon Additional comment Lives on [place] Feels Safe in Current Environment Yes Been Physically Hurt or Threatened By a No Person in Current Environment Do you have thoughts of harming yourself None or others? Are you currently considering suicide? No Do you have a plan to hurt yourself or No Plan others? Do You Have Any Spiritual Beliefs That No May Affect Your HC Choices? Do You Have Any Cultural Practices That No May Affect Your HC Choices? Comment Andrew Who Can We Speak to About Patient's Care Family, friends Identifying Code for Release of Patient Declinies to issue Information Health Care Proxy/Next of Kin Jeyson Sigala () Health Care Proxy Emergency Contact Name Jeyson Sigala () Emergency Contact Advance Directives? Yes Advance Directives on File No Requested Patient Bring Advanced Yes Directives DOS Power of Magistrate Assistant Yes Power of Magistrate Assistant Name Jeyson Sigala () Power of Magistrate Assistant PAC Instructions Assistance for 24 hours post- op,Durable medical equipment, Medications to take/avoid, Nasal antibiotic,No ETOH/ petroleum product on skin DOS, NPO,Pre-surgical wash,Sensory aids,Sturdy shoes/comfortable clothes,Do not bring valuables and remove jewelry
[2023-08-07] MEDS: DOCUSATE 100 MG CAPSULE PO (08:53)
[2023-08-07] MEDS: ASPIRIN EC 81 MG TABLET PO (08:53)
--- NOTE | 2023-08-07 09:02 | PM.DS.1 ---
History of Present Illness History of Present Illness Chief complaint: Right Total Hip Arthroplasty/Anterior Approach Narrative: Amanda is a pleasent 63 year old female who is POD#1 s/p right anterior total hip arthroplasty by Dr. Sinha. Patient reports she is feeling well overall and she is ready to be d/c to home with her today. Pain is mild-moderate and well controlled with oral pain medication (Tramadol). Patient has post-op medications at home already, has walker and ice machine. Patient did have a syncopal episode yesterday after surgery and there was concern due to her reduced H&H however patient is feeling asymptomatic today and has been up without feelings of syncope several times this morning. She successfully worked with PT, walking the hallways and doing stairs without issue or feelings of light headedness. Does have steps (13) up to her home but no steps within the home. Has post-op PT set up with [facility], first appt is Wednesday. Denies fever, chills, SOB, chest pain, nausea, vomiting, light headedness, confusion. Operative Date/Time/Diagnoses Date of procedure: 08/06/23 Pre-op diagnosis: Right hip arthritis Post-op diagnosis: same Procedure & Clinicians Procedure: Right total hip arthroplasty (17039) Same procedure as scheduled: Yes Surgeon: Constantine Sinha Judicial Registrar: Julianne Escalera Anesthesia Type: General and Local Operative Notes Estimated Blood Loss (mL): 750 Procedure in detail: Implants: Depuy Total Hip Arthroplasty: Depuy Almo Gription size 56 cup?with 1 screw Depuy Actis femoral stem size 6 standard offset? 36 mm +1.5 ceramic femoral head? Discharge Providers Provider Discharge Date: 08/07/23 Primary care physician: Melida Bose MD Consults: 07/23/23 12:18 Consult to Anesthesiology Routine Comment: Consulting Provider: Anesthesiologist Reason for consultation: Regional block for post operative pain control 08/06/23 11:57 Consult to Physical Therapy Evaluate & Treat Comment: PT and OT for right total hip replacement. Physician Instructions: Evaluate and Treat 08/06/23 14:51 Consult to Discharge Planning Routine Comment: Consult to Physical Therapy Evaluate & Treat Comment: Physician Instructions: post op JAYMIE protocol Discharge provider: Julianne Escalera PA-C Summary Hospital Course Discharge Diagnosis: stable s/p right JAYMIE Hospital Course: Hospital course complicated by an episode of syncope post-op Exam Vital Signs (past 8 hours): - 08/07/23 01:29 08/07/23 04:00 Temperature 97.2 F L 97.2 F L Pulse Rate 85 79 Respiratory Rate 18 18 Blood Pressure 138/60 121/45 L Pulse Oximetry 94 99 Oxygen Flow Rate 0 0 Oxygen Delivery Method Room Air Oxygen Flow Rate 0 Narrative Exam Narrative: Patient lying comfortably in bed with ice machine over the right hip during our interview today. Patient at bedside. Const General: cooperative, healthy appearing and comfortable Nutritional Appearance: average body habitus Resp Effort & Inspection: normal respiratory effort and able to speak in complete sentences Cardio Rate: regular rate Other: Brisk capillary refill Neuro General: patient alert, patient awake and patient oriented x3 Other: Sensation intact throughout bilateral lower extremities, no areas of sensory loss around the incision. Extrem Other: 5/5 strength with DF, PF, EHL. Calves soft and non-tender bilaterally. Clean and dry Aquacel dressing in place over the right anterior hip. Good AROM of the right knee with mild pain. Psych Mental Status: mental status grossly normal Speech and Movement: speech and movement normal Objective Labs 08/07/23 05:22 08/06/23 06:30 Labs: Laboratory Results - last 24 hr 08/06/23 08/06/23 08/07/23 06:30 13:50 05:22 Hgb 8.5 L 7.1 L Hct 25.1 L 20.3 L* Blood Type O Positive Antibody Screen Negative Crossmatch See Detail [facility] Medical History (Updated 08/05/23 @ 09:10 by Toshia Burns RN) Easy bruisability Melanoma (12/2021) Hearing impaired HTN (hypertension) Osteopenia Surgical History (Updated 08/05/23 @ 09:12 by Toshia Burns RN) History of surgery (12/2021) Social History household members: spouse Smoking Status: Never smoker alcohol intake: current Discharge Assessment & Plan Assessment and Plan Assessment: Stable s/p right JAYMIE Plan of Treatment: 1) Weight bearing as tolerated, maintain anterior hip precautions. 2) Continue multimodal pain management, continue ice to the hip for additional pain control. Patient has post-op meds at home already and has been instructed on their use. 3) ASA BID for DVT prophylaxis 4) Keep dressing clean and dry until 2 week post-op appt. 5) Follow up at [facility] [place] [facility] in 2 weeks for post-op appt and wound check. All of patient and her husbands questions were answered, they are in agreement with the plan. Stressed the importance of seeking further medical care if feelings of light headedness or any further episodes of syncope occur after d/c to home. Discharge Plan Discharge Plan Patient Disposition: Home Provider Discharge Comment: Detailed postoperative instructions available at [email or web address] Discharge orders & Medications Discharge Orders: Discharge (Order); Ordered 08/07/23 Ordered By: Julianne Escalera Prescriptions: New tramadol 50 mg tablet 50 mg PO Q6H PRN (Reason: pain) Qty: 30 0RF acetaminophen 325 mg Tablet 650 mg PO Q6H Qty: 90 0RF aspirin 81 mg Tablet,Delayed Release (Dr/Ec) 81 mg PO BID Qty: 90 0RF docusate sodium 100 mg Capsule 100 mg PO BID Qty: 30 0RF ibuprofen 600 mg Tablet 600 mg PO Q6H Qty: 60 0RF ondansetron 4 mg Tablet,Disintegrating 4 mg PO Q4HR PRN (Reason: Nausea) Qty: 10 0RF Continued lisinopril-hydrochlorothiazide 20-12.5 mg Tablet 1 tab PO DAILY estradiol [Vagifem] 10 mcg Tablet 10 mcg VAGINAL 2XW Follow up/Referrals: Melida Bose MD [Primary Care Provider] - Constantine Sinha MD [Physician] - (Follow-up as scheduled in 2 weeks at [facility]) Diet/Activity/Treatments Diet: Diet as Tolerated Activity: Weight-bearing as tolerated, maintain anterior hip precautions. Cold/Heat Therapy: Ice to the hip for additional pain control. Skin/Wound/Dressing Care Report to your healthcare provider any signs of infection, such as:: chills, fever, night sweats, unusual drainage and unusual redness Dressing: Keep dressing intact until 2 week postop appointment. Keep dressing clean and dry, no soaking the incision site in pools or tubs, no topical ointments or creams to the incision site. If dressing becomes dirty or saturated please contact our office for a replacement dressing or replace with clean and dry gauze. Visit Report/Discharge Packet Instructions: DI for Hip Replacement, DI for Prescription Opioid Use Stand Alone Forms: Patient Portal/API, Surgery Discharge Discharge Data Primary Care Provider: Melida Bose Attending Provider: Constantine Sinha VTE Deep Vein Thrombosis/Pulmonary Embolism Present on Admission: No
--- NOTE | 2023-08-07 10:10 | PC.NURSE ---
Pt alert and oriented, awaiting on assessment from P.A. and P.T. in regards to discharging this morning. Pt and are both in agreement that they are ready to go and have a 10:15 [facility] to [facility]. Surgical site intact, IV SL d/c'd per protocol. Pt escorted to family car via w/c and to care of .
== END 2023-08-07 09:28 | disposition home or self-care (01) ==
LOC: OR 06:13 → AC 06:13
PROVIDERS: PCP Family Medicine; Referring Provider Orthopaedic Surgery Adult Reconstructive Orthopaedic Surgery; Visit Provider Orthopaedic Surgery Adult Reconstructive Orthopaedic Surgery
PROC: (CPT 27130; principal; 2023-08-06 07:45)
DX: M16.11 Unilateral primary osteoarthritis, right hip (principal)
CPT/HCPCS: 27130; 36415; 73502; 73503; 76000; 80048; 85014; 85018; 85025; 85610; 86850; 86900; 86901; 97116; 97163; 97530; C1776; J0690; J1100; J2405; J2704; J3010; J3490; P9041